=== PATIENT | male | born 1945 | race Caucasian/White ===

== ENCOUNTER 2016-06-28 07:38 | Day surgery (SDC) | payer OTHER ==
[2016-06-27 16:46] LABS: WBC (NOT ORDERED) (RFLEX) 0 (0-5)
[2016-06-27 18:41] LABS: HEMATOCRIT 43.2 % (40.0-51.0); HEMOGLOBIN 14.5 g/dL (13.6-17.8)
[2016-06-27 18:56] LABS: ASCORBIC ACID (UR NOT ORDER) 40 (NEG); BILIRUBIN, URINE NEGATIVE (NEG); KETONE, URINE NEGATIVE (NEG); LEUKOCYTE ESTERASE(NOT OR NEG (NEG)
[2016-06-27 18:58] LABS: CALCIUM, SERUM 9.6 MG/DL (8.5-10.4); CHLORIDE, SERUM 104 MMOL/L (96-112); CO2 (CARBON DIOXIDE) 33 MMOL/L (24-34); CREATININE 1.02 MG/DL (0.70-1.30); GFR AFRICAN AMERICAN 84 ML/MIN (>=60); GFR NON AFRICAN AMERICAN 73 ML/MIN (>=60); POTASSIUM, SERUM 3.3 MMOL/L (3.5-5.3); SODIUM, SERUM 144 MMOL/L (135-148)
[2016-06-27 19:02] LABS: BUN (BLOOD UREA NITROGEN) 23 MG/DL (6-23); GLUCOSE, SERUM 105 MG/DL (60-99)
--- NOTE | ~2016-06-28 | OP ---
Record Of Operation [facility] [address] [place]. [address] NAME: TINO CALDWELL : 41 STATUS : REG [facility]#: [id number] AGE: 71 ADM/REG DATE : 06/28/16 MR#: [id number] REPORT SERV DATE: 06/28/16 DICTATED BY: CARINA ROSAS DATE: 06/28/16 REPORT STATUS : Draft TRANSCRIBED BY: MODL DATE: 06/28/16 DATE OF PROCEDURE: 06/28/2016 SURGEON: Carina Rosas MD. TITLES OF OPERATION: 1. Cystourethroscopy. 2. Cystolitholapaxy. PREOPERATIVE DIAGNOSES: 1. Bladder stones. 2. Benign prostatic hypertrophy. POSTOPERATIVE DIAGNOSES: 1. Bladder stones. 2. Benign prostatic hypertrophy. INDICATIONS: Mr. Caldwell is a 71-year-old male with a very large prostate of 100 g. He has severe urinary symptoms that are acute onset. He was found to have a 5 cm bladder stone. He is here for cystolitholapaxy. We will address his prostate enlargement in the future if needed. ANESTHESIA: General. COMPLICATIONS: None. IMPLANTS: 18-Beninese Perez catheter. SPECIMEN: Stone for analysis. NARRATIVE: The patient was brought to the operating room, identified by his wristband. General anesthesia was induced, and Ancef was given for preoperative antibiotics. He was placed in the dorsal lithotomy position, prepped and draped in sterile fashion. A 22-Beninese cystoscope was placed into his urethra into his bladder. The prostatic urethra was very long and obstructing. The bladder was inspected. There were four bladder stones with an aggregate size of approximately 5 cm. The bladder was trabeculated consistent with longstanding obstruction. Using 1000 micron laser fiber and a 100 watt laser, the stones were dusted into innumerable tiny pieces. These pieces were evacuated from the bladder. The bladder was inspected. There was no other pieces left at all. The ureters were undamaged. The bladder was undamaged. The scope was removed. The stones were sent for analysis. An 18-Beninese coude catheter was placed. It will be removed in the recovery room. I will see him back in two weeks to check on his status. JKM/MODL Record Of Operation [facility] [address] [place]. [address] NAME: TINO CALDWELL : 41 STATUS : REG [facility] PAT#: [id number] AGE: 71 ADM/REG DATE : 06/28/16 MR#: [id number] REPORT SERV DATE: 06/28/16 DICTATED BY: CARINA ROSAS DATE: 06/28/16 REPORT STATUS : Draft TRANSCRIBED BY: MODL DATE: 06/28/16 Carina Rosas MD / [id number] CC: MD Manuel Graves M.D.
[~2016-06-28 07:38] MED LIST: FORTAMET500 MG PO; HALF81 PO; IBU800 PO; NORV5 PO; PRILO PO; PRIN10 PO
[2016-07-06 01:41] LABS: STONE COMPOSITION TWO DNR (())
== END 2016-06-28 18:22 | disposition home or self-care (01) ==
LOC: SDC 07:38
PROVIDERS: Urology
PROC: 0TCB8ZZ Extirpation of Matter from Bladder, Via Natural or Artificial Opening Endoscopic (ICD-10-PCS; principal; 2016-06-28 09:00)
DX: N21.0 Calculus in bladder (principal); N40.0 Benign prostatic hyperplasia without lower urinary tract symptoms; I10 Essential (primary) hypertension; E11.9 Type 2 diabetes mellitus without complications; K21.9 Gastro-esophageal reflux disease without esophagitis; C67.9 Malignant neoplasm of bladder, unspecified; M19.90 Unspecified osteoarthritis, unspecified site; K44.9 Diaphragmatic hernia without obstruction or gangrene; Z87.442 Personal history of urinary calculi; Z90.49 Acquired absence of other specified parts of digestive tract; Z98.41 Cataract extraction status, right eye; Z98.42 Cataract extraction status, left eye
CPT/HCPCS: 80048; 81001; 82365; 82962; 85014; 85018; 93005; A9270-GY; J0690; J2405; J2710; J3010